=== PATIENT | female | born 1990 | race Caucasian/White ===

== ENCOUNTER 2017-06-30 10:37 | Emergency (ER) | payer SELFPAY ==
--- NOTE | 2017-06-30 10:42 | ED Physician Documentation ---
General Adult - HISTORIAN Historian: patient - HPI Stated Complaint: cramps Chief Complaint: Abdominal Pain Additional Information: symptoms of cramping She states that she believes by her last menstural period she was due Sep 28 although she feels she could be further along than that She states that 3 days ago she started to have cramping in lower abdomen that do make her abdomen tight She states the cramps are worse in the am SHe does have some pain in her lower back She states that once the cramping starts she gets up and gets her day going and she did take an ibuprofen and this helps the back pain but not her cramps She has had issues with constipation She states that she has had some vaginal discharge that is white and it does have a "tad bit" of an odor She does have one sexual partner Denies any fever Her last Bowel movement was 3 days ago She has no care due to a move Denies any leaking of fluid No bleeding Onset: days ago (3) Timing: still present, persistent since Severity: moderate Modifying Factors: when she gets up and around she feels less cramping until today Quality: cramping Location: pelvic / low abdomen / back Further Comments: no - ROS CONST: denies: fever, recent illness, chills GI/: abdominal pain. denies: vomiting, nausea, diarrhea MS/SKIN/LYMPH: none NEURO/PSYCH: headache - PAST HX Past History: none Other History: none Surgeries/Procedures: other (hernia repair ) Immunizations: referred to PCP Allergies/Adverse Reactions: Allergies Allergy/AdvReac Type Severity Reaction Status Date / Time No Known Allergies Allergy Verified 06/30/17 11:01 Home Medications: Ambulatory Orders Medication Instructions Recorded Amoxicillin [Trimox] 500 mg PO TID #21 capsule 06/30/17 Folic Acid [Folic Acid] 1 mg PO DAILY 06/30/17 Pediatric Multivit Comb No.76 1 tab PO DAILY 06/30/17 [Flintstones Complete] - SOCIAL HX Smoking History: non-smoker Alcohol Use: none Drug Use: none - FAMILY HX Family History: Yes - REVIEWED ASSESSMENTS Nursing Assessment Reviewed: Yes Vitals Reviewed: Yes ED Results Lab/Radiology - Radiology Radiology Impressions: Examination: OB ultrasound History: Cramping Comparison exams: None available Findings: Sonographic evaluation of the uterus demonstrates a single intrauterine gestation. BPD 6.7 cm EGA 27 w 1 d HC 25.3 cm EGA 27 w 3 d AC 22.7 cm EGA 27 w 1 d FL 4.9 cm EGA 26 w 3 d HC/AC: 1.11 FL/HC: 19.3 FL/AC: 21.5 FL/BPD: 72.5 CI: 74.5 Composite gestational age of 27 weeks 0 days with an estimated date of delivery of 29 September 2017. No gross abnormalities identified. heart rate of 145 beats per minute Sampling of amniotic fluid in all 4 quadrants gives an DAVID of 17.64 Placenta anterior. Os clear. Cervix within normal limits. Impression: Live intrauterine gestation with estimated gestational age of 27 weeks 0 day. Estimated date of delivery 29 September 2017. Appropriate interval growth. Electronically signed on Jun 30, 2017 12:10:07 PM CDT by: Jesse Martino General Adult Physical Exam - PHYSICAL EXAM GENERAL APPEARANCE: no distress RESPIRATORY: no resp distress CVS: reg rate & rhythm, heart sounds normal ABDOMEN: normal bowel sounds, other (vaginal exam completed with mild yeast cervix closed no fluid noted no pain with exam ) BACK: normal inspection SKIN: warm/dry EXTREMITIES: non-tender NEURO: oriented X3 Discharge Clincal Impression: Prescriptions: Amoxicillin [Trimox] 500 mg PO TID #21 capsule Referrals: Primary Doctor,No [Primary Care Provider] - 2 Days Additional Instructions: start meds for UTI Pelvic rest See OBGYN SRINIVASA Home Medications: Ambulatory Orders Amoxicillin [Trimox] 500 mg PO TID #21 capsule 06/30/17 Folic Acid [Folic Acid] 1 mg PO DAILY 06/30/17 Pediatric Multivit Comb No.76 [Flintstones Complete] 1 tab PO DAILY 06/30/17 Decision to Admit: NO Date of Decison to Admit: 06/30/17 Decision Time: 13:04
[2017-06-30 11:14] LABS: APPEARANCE,URINE Slightly Cloudy (CLEAR); COLOR,URINE Yellow (YELLOW); OCCULT BLOOD,URINE 2+ (NEGATIVE); UROBILINOGEN URINE 0.2 Eu (0.2-1.0)
[2017-06-30] MEDS ORDERED: 0.9 % SODIUM CHLORIDE 1,000 ML IV ONE ×2 (11:18→11:25)
[2017-06-30 11:21] LABS: AMORPHOUS SEDIMENT,UR FEW (NEGATIVE)
[2017-06-30 11:24] LABS: BASOPHILS % 0.4 (0.0-1.5); EOSINOPHILS % 1.5 % (0.0-6.8); MEAN CORPUSCULAR HEMOGLOBIN 33.4 pg (28.0-34.0); MEAN CORPUSCULAR VOLUME 99.4 fl (80.0-100.0); MONOCYTES % 3.1 % (0.0-11.0); NEUTROPHILS # 6.4 # k/uL (1.4-7.7)
[2017-06-30] MEDS ORDERED: 0.9 % SODIUM CHLORIDE 1,000 ML IV SCH (11:30)
[2017-06-30 11:55] LABS: eGFR (African) > 60; eGFR (Non-African) > 60
--- NOTE | 2017-06-30 13:19 | Diagnostic Imaging Report ---
NATASHA MERRITT [facility] [id number] [facility]ly [facility], [facility] [place] [id number] Report Submission Date: Jun 30, 2017 12:10:07 PM CDT Patient Study Name: TONYA DUMONT Date: Jun 30, 2017 11:24:00 AM CDT Modality Type: US Gender: F Description: OB LIMITED > 14 WKS : 88 Institution: [facility] Physician: NATASHA MERRITT Examination: OB ultrasound History: Cramping Comparison exams: None available Findings: Sonographic evaluation of the uterus demonstrates a single intrauterine gestation. BPD 6.7 cm EGA 27 w 1 d HC 25.3 cm EGA 27 w 3 d AC 22.7 cm EGA 27 w 1 d FL 4.9 cm EGA 26 w 3 d HC/AC: 1.11 FL/HC: 19.3 FL/AC: 21.5 FL/BPD: 72.5 CI: 74.5 Composite gestational age of 27 weeks 0 days with an estimated date of delivery of 29 September 2017. No gross abnormalities identified. heart rate of 145 beats per minute Sampling of amniotic fluid in all 4 quadrants gives an DAVID of 17.64 Placenta anterior. Os clear. Cervix within normal limits. Impression: Live intrauterine gestation with estimated gestational age of 27 weeks 0 day. Estimated date of delivery 29 September 2017. Appropriate interval growth. Electronically signed on Jun 30, 2017 12:10:07 PM CDT by: Jesse PEDERSEN
[2017-06-30 13:36] VITALS: BP 127/66
== END 2017-06-30 13:30 ==
LOC: ED 10:37
DX: R10.9 Unspecified abdominal pain (principal); Z34.92 Encounter for supervision of normal pregnancy, unspecified, second trimester
CPT/HCPCS: 76805; 80053; 81002; 85025; 87491; 87591; J7030; 96360; 99283; S1016